=== PATIENT | male | born 1985 | race Caucasian/White ===

== ENCOUNTER 2024-11-06 13:50 | Day surgery (SDC) | payer BC ==
[2024-11-06] MEDS ORDERED: Sodium Chloride 0.9% 10 ML Syringe FLUSH PRN (14:16)
[2024-11-06] MEDS: Sodium Chloride 0.9% 10 ML Syringe FLUSH ONE (15:01)
[2024-11-06] MEDS: Iopamidol 755 Mg/ML 100 ML Bottle IVPUSH ONE (15:01)
[2024-11-06 15:06] LABS: BASOPHILS ABSOLUTE AUTO 0.1 K/mm3 (0.0-0.2); BASOPHILS PERCENT AUTO 0.5 % (0.0-1.0); EOSINOPHILS ABSOLUTE AUTO 0.6 K/mm3 (0.0-0.4); EOSINOPHILS PERCENT AUTO 3.3 % (0.0-6.0); HEMOGLOBIN 15.5 gm/dl (14.0-18.0); IMMATURE GRAN ABSOLUTE AUTO 0.07 K/mm3 (0.00-0.05); IMMATURE GRAN PERCENT AUTO 0.4 % (0.0-0.4); LYMPHOCYTES ABSOLUTE AUTO 1.9 K/mm3 (1.0-4.8); LYMPHOCYTES PERCENT AUTO 11.1 % (24.0-44.0); MEAN CORPUSCULAR HGB CONC 34.4 g/dl (32.0-36.0); MEAN CORPUSCULAR VOLUME 84.1 fl (83.0-99.0); MONOCYTES ABSOLUTE AUTO 0.7 K/mm3 (0.0-0.8); MONOCYTES PERCENT AUTO 4.3 % (0.0-8.0); NEUTROPHILS ABSOLUTE AUTO 13.5 K/mm3 (1.8-7.7); NEUTROPHILS PERCENT AUTO 80.4 % (41.0-71.0); PLATELET COUNT,PLT 307 K/mm3 (150-400); RED BLOOD CELL COUNT 5.35 M/mm3 (4.52-5.90); WHITE BLOOD CELL COUNT,WBC 16.81 K/mm3 (3.9-11.3)
[2024-11-06] MEDS ORDERED: fentaNYL 100 MCG/2 ML SDV ONE (15:11)
[2024-11-06] MEDS ORDERED: Sodium Chloride 0.9% 200 ML ONE (15:11)
[2024-11-06] MEDS ORDERED: Glycopyrrolate 0.2 MG/ML 2 ML SDV ONE (15:11)
[2024-11-06] MEDS ORDERED: Dexamethasone 4 MG/ML 5 ML MDV ONE (15:11)
[2024-11-06] MEDS ORDERED: Lidocaine 2% 5 ML SDV ONE (15:11)
[2024-11-06] MEDS ORDERED: Rocuronium 50 MG/5 ML Vial ONE ×2 (15:11→16:15)
[2024-11-06] MEDS ORDERED: Midazolam 1 MG/ML 2 ML SDV ONE (15:11)
[2024-11-06] MEDS ORDERED: Propofol 200 MG/20 ML SDV ONE (15:11)
[2024-11-06] MEDS ORDERED: Sugammadex Sodium 200 MG/2 ML VIAL IV ONE (15:15)
[2024-11-06] MEDS ORDERED: dexmedeTOMIDine HCl 200 MCG/2 ML SDV ONE (15:15)
[2024-11-06] MEDS ORDERED: Phenylephrine 1% 10 MG/ML SDV ONE (15:15)
[2024-11-06 15:27] LABS: ALBUMIN 3.8 g/dl (3.4-5.0); ANION GAP 13.1 (5-15); BUN/CREATININE RATIO 7.3 (14-18); C-REACTIVE PROTEIN 1.02 mg/dL (<0.30); CALCIUM 8.8 mg/dL (8.5-10.1); CREATININE 1.1 mg/dL (0.7-1.3); EST CRCL DRUG DOSING (CG) 94.02 mL/min; POTASSIUM,K 4.1 mEq/L (3.5-5.1); PROTEIN TOTAL,TP 7.7 g/dl (6.4-8.2)
[2024-11-06] MEDS: Sodium Chloride 0.9% 1,000 ML IV SCH (15:28)
[2024-11-06] MEDS: fentaNYL 100 MCG/2 ML SDV IVPUSH ONE (15:29)
[2024-11-06] MEDS: Ondansetron 4 MG/2 ML SDV IVPUSH ONE (15:29)
[2024-11-06 15:32] LABS: LACTIC ACID 1.9 mmol/L (0.4-2.0)
[2024-11-06 15:33] LABS: APPEARANCE,URINE CLEAR (Clear); BILIRUBIN,URINE NEGATIVE (Negative); COLOR,URINE YELLOW (Yellow); GLUCOSE,URINE NEGATIVE (Negative); KETONES,URINE NEGATIVE (Negative); LEUKOCYTE ESTERASE,URINE 1+ (Negative); NITRITE,URINE NEGATIVE (Negative); OCCULT BLOOD,URINE NEGATIVE (Negative); PROTEIN,URINE NEGATIVE (Negative); UROBILINOGEN,URINE 0.2 (0.2-1.0)
[2024-11-06] MEDS: Levofloxacin/Dextrose 5%-Water 750 MG in Premix Bag 1 BAG IV ONE (15:51)
[2024-11-06] MEDS: metroNIDAZOLE/Normal Saline 500 MG in Premix Bag 1 BAG IV ONE (15:51)
[2024-11-06] MEDS ORDERED: Lidocaine 1% with EPINEPHrine 1:100,000 20 ML MDV ONE (16:04)
[2024-11-06] MEDS: Piperacillin/Tazobactam 4.5 GM in Sodium Chloride 0.9% 100 ML IV ONE (16:05)
[2024-11-06] MEDS ORDERED: Esmolol 100 MG/10 ML SDV ONE (16:08)
[2024-11-06 16:09] LABS: BACTERIA,URINE FEW /hpf (FEW); MUCUS,URINE FEW /hpf (FEW); RBC,URINE 0-5 /hpf (0-5)
[2024-11-06] MEDS ORDERED: Ondansetron 4 MG/2 ML SDV ONE (16:39)
[2024-11-06] MEDS ORDERED: Ketorolac 30 MG/ML SDV ONE (16:39)
[2024-11-06] MEDS: Bupivacaine 0.5% 30 ML SDV ONE (17:20)
[2024-11-06] MEDS: Lidocaine 1% with EPINEPHrine 1:100,000 20 ML MDV ONE (17:20)
[2024-11-06] MEDS: EPINEPHrine 1 MG/ML SDV ONE (17:20)
[2024-11-06] MEDS ORDERED: Lactated Ringers 1,000 ML ONE (17:45)
[2024-11-06] MEDS ORDERED: fentaNYL 100 MCG/2 ML SDV IVPUSH PRN (18:32)
[2024-11-06] MEDS ORDERED: HYDROmorphone 0.5 MG/0.5 ML Syringe IVPUSH PRN (18:32)
[2024-11-06] MEDS ORDERED: Ondansetron 4 MG/2 ML SDV IVPUSH PRN (18:32)
[2024-11-06] MEDS: Acetaminophen/oxyCODONE 325-5 MG Tab PO PRN (19:30)
== END 2024-11-06 19:48 ==
LOC: JD.ED 13:50 → JD.SDS 15:42
PROVIDERS: ATTEND Surgery
DX: K35.80 Unspecified acute appendicitis (principal); Z88.8 Allergy status to other drugs, medicaments and biological substances
CPT/HCPCS: 00840; 36415; 74177; 74177-26; 80053; 81001; 83605; 83690; 85025; 86140; 87086; 96374; 96375; 99285; 99285-25; A9270-GY; J0171; J0665; J1100; J1596; J1836; J1885; J1956; J2003; J2004; J2250; J2371; J2405; J2704; J3010; J3490; J7030; J7120; Q9967